=== PATIENT | male | born 1955 | race Caucasian/White ===

== ENCOUNTER 2024-02-14 11:33 | Outpatient (CLI) | payer MEDICARE, SELFPAY ==
--- NOTE | ~2024-02-14 | PE_ITS ---
EXAMINATION: PET_PETPSMAST_PT DATE: 02/14/2024 15:00 INDICATION: Gastric cancer TECHNIQUE: 9.663 mCi of pipflufolastat F-18 (18-F-DCFPyL) was administered i.v. Low dose computed to mography (CT) images were acquired from the base of the brain to the base of the brain to the proxima l thighs for attenuation correction and anatomic localization. Positron emission tomography (PET) lucy ges were acquired in the same distribution beginning 101 minutes after injection. Images including fu sed PET/CT images were reconstructed in axial, coronal, and sagittal planes. Automated exposure contr ol technique was employed. The dose-length product was 613.93mGy-cm. COMPARISON: None FINDINGS: Head/neck: Typical pattern of symmetric physiologic increased activity in the lacrimal, parotid and submandibula r glands as well as along the mucosa of the nasal and oral cavities, the ryann-, naso- and hypopharynx, the glottis and esophagus. There is also a typical pattern of symmetric tiny foci of mild likely phy siologic neural ganglia uptake at a few bilateral cervical neural foramina. No pathologically enlarge d cervical lymphadenopathy or suspicious foci of increased uptake in the visualized head or neck. Chest: No suspicious pulmonary nodules, pneumonia, pulmonary edema or pleural effusion. Heart size is normal . Atherosclerotic coronary artery calcific location. Thoracic aorta is normal in caliber. No patholog ically enlarged or PSMA avid thoracic lymphadenopathy. Abdomen/pelvis/proximal thighs: Physiologic renal accumulation and excretion of activity in the kidneys, bladder and along portions o f ureters. Prostatomegaly measuring 4.2 x 3.3 cm with approximately 1 cm focus of increased uptake at the anteroinferior prostate slightly to the right of midline with maximal SUV of 17.2. There are mul tiple PSMA avid pelvic and lower abdominal lymph nodes consistent with metastatic disease. For refere nce there is a 1.5 x 1.3 cm left obturator lymph node with maximal SUV of 19. There are a few additio nal PSMA avid lymph nodes along right internal iliac and the left external and common iliac chains an d a few PSMA avid infrarenal periaortic lymph nodes. For reference there is a 1.5 x 1.5 cm left peria ortic lymph node at the level of L4 with maximal SUV of 10.5. Normal degree and slightly heterogenous pattern of increased uptake throughout the liver and spleen w ithout radiologic correlate or dominant PSMA avid lesion. The gallbladder, pancreas and bilateral adr enal glands are normal. Moderate uptake scattered throughout the bowels with typical duodenal and pro ximal jejunal predominance and without radiologic correlate, also likely physiologic. Musculoskeletal: Moderate cervical and thoracic and moderate to severe lumbar spondylosis. No suspicious lytic, blasti c or PSMA avid bone lesions. IMPRESSION: 1. Prostatomegaly with small focus of increased PSMA uptake at the anterior inferior gland consistent with primary prostate cancer. 2. Multiple mildly enlarged and PSMA avid pelvic and infrarenal periaortic lymph nodes consistent wit h metastatic disease. Reviewed, dictated and finalized at location A. IMPRESSION: 1. Prostatomegaly with small focus of increased PSMA uptake at the anterior inf erior gland consistent with primary prostate cancer. 2. Multiple mildly enlarged and PSMA avid pelvic and infrarenal periaortic lymp h nodes consistent with metastatic disease.
== END 2024-02-14 11:34 | disposition home or self-care (01) ==
LOC: ANHIMG 11:36
PROVIDERS: Visit Provider Urology
DX: C61 Malignant neoplasm of prostate (principal)
CPT/HCPCS: 78815; A9595